=== PATIENT | female | born 1950 | race Hispanic/Latino ===

== ENCOUNTER → 2023-01-30 | Outpatient (CLI) | payer OTHER | END | disposition home or self-care (01) | LOC: RAH 09:53 | PROVIDERS: ATTEND Internal Medicine | DX: Z12.31 Encounter for screening mammogram for malignant neoplasm of breast (principal) | CPT/HCPCS: 77067 ==

== ENCOUNTER → 2024-01-29 | Outpatient (CLI) | payer OTHER | LOC: RAH 09:36 | PROVIDERS: ATTEND Internal Medicine | DX: Z12.31 Encounter for screening mammogram for malignant neoplasm of breast (principal) | CPT/HCPCS: 77067 ==